=== PATIENT | male | born 1995 | race Caucasian/White ===

== ENCOUNTER 2022-12-24 12:13 | Emergency (ER) | payer SELFPAY ==
--- NOTE | 2022-12-24 12:16 | XRR_ITS ---
PROCEDURE INFORMATION: Exam: XR Right Foot Exam date and time: 12/24/2022 12:23 PM Age: 27 years old Clinical indication: Injury or trauma; Fall; Crushing; Foot; Right TECHNIQUE: Imaging protocol: Radiologic exam of the right foot. Views: 3 or more views. COMPARISON: No relevant prior studies available. FINDINGS: Bones/joints: There is eccentric bone sclerosis in the proximal 2nd phalanx with thickened cortex and replacement of the marrow space. Alignment is normal. No acute fracture. Soft tissues: There is dorsal soft tissue edema in the forefoot. XR/XR foot RT min 3V* [id number] IMPRESSION: 1. No acute findings. 2. Nonaggressive sclerotic bone lesion in the proximal 2nd phalanx consistent with enchondroma or healed fibroxanthoma.
[2022-12-24 12:33] VITALS: BP 145/85; PULSE 84; RESP 16; TEMP 36.7; O2SAT 97; BMI 31.1
--- NOTE | 2022-12-24 13:02 | W.ED.EXTPRO ---
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 He has had left foot pain since then he is able to ambulate he rates his pain a 4 out of 10 is worse with palpation improved with rest he does have a contusion denies any other injuries. Associated symptoms: Deny chest pain, fever(s) or rash Review of Systems Const: Denies: fever(s) or body aches Card: Denies: chest pain Resp: Denies: dyspnea GI: Denies: abdominal pain Musc: Reports: extremity pain; Denies: neck pain or back pain Skin/Breast: Denies: rash Neuro: Denies: headache(s) Physical Exam Const: COMMON NORMALS: no acute distress and patient oriented x3 HENMT: COMMON NORMALS: normocephalic and atraumatic HEAD & SCALP: normocephalic and atraumatic Eye: COMMON NORMALS: conjunctivae normal CONJUNCTIVA: Yes conjunctivae normal Neck/C-Spine: COMMON NORMALS: full ROM Chest: COMMONS NORMALS: normal inspection of the chest Resp: COMMON NORMALS: normal respiratory effort Cardio: COMMON NORMALS: regular rate and regular rhythm RATE: regular rate RHYTHM: regular rhythm GI: INSPECTION: Yes normal to inspection Extremity: NARRATIVE EXTREMITY EXAM: Contusion over left [employer] to touch no obvious deformities patient is able to ambulate Neuro: COMMON NORMALS: patient oriented x3 Psych: COMMON NORMALS: mental status grossly normal Skin: COMMON NORMALS: no rashes or lesions noted GENERAL SKIN EXAM: no rashes or lesions noted Course Vital Signs: Vital signs: Vital Signs Temperature 98.0 F 12/24/22 12:33 Pulse Rate 84 12/24/22 12:33 Respiratory Rate 16 12/24/22 12:33 Blood Pressure 145/85 12/24/22 12:33 Pulse Oximetry 97 12/24/22 12:33 Oxygen Delivery Me thod Room Air 12/24/22 12:33 MDM - Extremity (Nontraumatic) Medical Decision Making Patient presents with a foot contusion with a [id number] injury. He is able to ambulate on it x-ray shows no fracture no ankle pain we will Peña wrap placed on Naprosyn get him follow-up with podiatry Medical Records I reviewed the patient's medical records. Lab Data Radiology Impressions Foot X-Ray 12/24/22 12:16 IMPRESSION: 1. No acute findings. 2. Nonaggressive sclerotic bone lesion in the proximal 2nd phalanx consistent with enchondroma or healed fibroxanthoma. Discharge Plan Discharge Patient Disposition: Home Clinical Impression: Contusion of foot, right Condition: Stable Prescriptions: New Naprosyn 500 mg tablet 500 mg PO BID PRN (Reason: pain) Qty: 20 0RF Discharge Orders: Discharge ED (Routine); Ordered 12/24/22 Ordered By: Era Stock Referrals: Lupillo Hood DPM [Physician] - 1-3 days Discharge Diet: Advance as tolerated Discharge Activity: Resume usual activity Patient Instructions: Foot Contusion (ED) Coding Level of Care Code ED Hand Splitter for Ashley Savage
[2022-12-24] MEDS: naproxen 500 mg Tablet PO (13:09)
--- NOTE | 2022-12-25 08:41 | DCPLANNER ---
Addendum entered by Leah Santamaria 12/28/22 13:40: annual giving manager received the following message from the ortho clinic regarding follow up appointment: Attempted to call/phone answered and no one spoke. Hood would like to see this on 12/28/22. Will try to call again later Original Note: annual giving manager had message to schedule a follow up appointment for patient with podiatry. annual giving manager sent patients information to the front office staff at podiatry. Patients information will be printed and reviewed. Clinic will call patient with appointment information.
--- NOTE | 2022-12-25 11:57 | DCPLANNER ---
manager investment banking called patient due to no primary care physician - patient declines at this time.
== END 2022-12-24 13:11 | disposition home or self-care (01) ==
PROVIDERS: Emergency Provider Emergency Medicine
DX: S90.31XA Contusion of right foot, initial encounter (principal); V86.79XA Person on outside of other special all-terrain or other off-road motor vehicles injured in nontraffic accident, initial encounter
CPT/HCPCS: 73630; 99283